=== PATIENT | female | born 1970 | race Caucasian/White ===

== ENCOUNTER 2017-11-19 17:32 | Day surgery (SDC) | payer SELFPAY ==
[~2017-11-19] VITALS: Ht 157.5 cm; Wt 73.6 kg
[~2017-11-19 17:32] MED LIST changes: -ADAPALENE45 G2 TP; -ADVIL,NUPRIN,M200 MG PO; -BUPROPION HCL75 MG PO; -CLONAZEPAM1 MG PO; -ESCITALOPRAM OX20 MG PO; -FLUTICASONE PRO16 GM BOTH NARES; -PEPTO BISMOL240 ML PO; -SPIRIVA RESPIMAT4 G1 IH; -VITAMIN D31000 UNI2 PO
[2017-11-19 18:46] LABS: HEMOGLOBIN 14.7 G/DL (11.9-15.5); MCH 31.1 PG (29.0-34.0); MCHC 34.2 G/DL (30.0-36.0); MCV 90.9 FL (83-99); PLATELET COUNT 203 K/uL (156-360); RBC DIS.WIDTH-CV 13.7 % (11.8-14.6); RBC DIS.WIDTH-SD 46.1 % (39-53); RED BLOOD COUNT 4.73 M/uL (3.80-5.20); WHITE BLOOD COUNT 10.4 K/uL (4.1-10.2)
[2017-11-19] MEDS ORDERED: VITAMIN D31000 UNI2 PO (19:45)
[2017-11-19] MEDS ORDERED: ADVIL,NUPRIN,M200 MG PO (19:46)
[2017-11-19] MEDS ORDERED: PEPTO BISMOL240 ML PO (19:47)
[2017-11-19] MEDS ORDERED: CLONAZEPAM1 MG PO (19:48)
[2017-11-19] MEDS ORDERED: FLUTICASONE PRO16 GM BOTH NARES (19:48)
[2017-11-19] MEDS ORDERED: BUPROPION HCL75 MG PO (19:49)
[2017-11-19] MEDS ORDERED: ESCITALOPRAM OX20 MG PO (19:49)
[2017-11-19] MEDS ORDERED: ADAPALENE45 G2 TP (19:50)
[2017-11-19] MEDS ORDERED: SPIRIVA RESPIMAT4 G1 IH (19:51)
[2017-11-19 20:35] LABS: CHLORIDE 105 MEQ/L (99-109); POTASSIUM 3.6 MEQ/L (3.7-5.4); SODIUM 138 MEQ/L (136-147)
[2017-11-19 20:40] LABS: CREATININE 0.6 MG/DL (0.6-1.3); GFR ESTIMATE (CALCULATED) > 59 mL/min/; GLUCOSE 92 mg/dL (70-99); UREA NITROGEN (BUN) 7 mg/dL (9-23)
[2017-11-19 23:57] VITALS: BP 112/56
[2017-11-20 08:12] VITALS: BP 121/68
[2017-11-20 08:59] LABS: BASOPHIL (%) 0.4 % (0-1); EOSINOPHIL (%) 1.4 % (0-5); EOSINOPHIL COUNT 0.1 K/uL (0-0.3); HEMATOCRIT 39.2 % (36.0-46.0); IMMATURE GRANULOCYTE (%) 0.1 % (0.0-0.7); LYMPHOCYTE (%) 15.9 % (15-42); LYMPHOCYTE COUNT 1.4 K/uL (1.0-2.8); MCHC 33.2 G/DL (30.0-36.0); MCV 93.6 FL (83-99); MONOCYTE (%) 5.5 % (3-12); MONOCYTE COUNT 0.5 K/uL (0-0.8); NEUTROPHIL (%) 76.7 % (45-76); NEUTROPHIL COUNT 6.5 K/uL (1.8-6.4); PLATELET COUNT 232 K/uL (156-360); RBC DIS.WIDTH-CV 13.8 % (11.8-14.6); RBC DIS.WIDTH-SD 46.9 % (39-53); RED BLOOD COUNT 4.19 M/uL (3.80-5.20); WHITE BLOOD COUNT 8.5 K/uL (4.1-10.2)
[2017-11-20 09:25] LABS: CHLORIDE 103 MEQ/L (99-109); CREATININE 0.8 MG/DL (0.6-1.3); GFR ESTIMATE (CALCULATED) > 59 mL/min/; GLUCOSE 112 mg/dL (70-99); POTASSIUM 3.6 MEQ/L (3.7-5.4); SODIUM 141 MEQ/L (136-147); UREA NITROGEN (BUN) 4 mg/dL (9-23)
== END 2017-11-20 15:09 | disposition home or self-care (01) ==
LOC: EME 17:32 → SDC 21:08 → 2SOUTH 22:35 → 5EAST 22:35 → 2SOUTH 22:35 → ENRESERV 22:44 → 5EAST 23:47
PROVIDERS: Emergency Medicine; Physician Assistant
PROC: 0DTJ4ZZ Resection of Appendix, Percutaneous Endoscopic Approach (ICD-10-PCS; principal; 2017-11-19)
DX: K35.3 Acute appendicitis with localized peritonitis (principal); Z86.718 Personal history of other venous thrombosis and embolism
CPT/HCPCS: 80048; 84702; 85025; 85027; 88304; 93005; 99281; 99285; G0378; J1170; J2250; J3010; J7030; J7120; S0020; S0074

== ENCOUNTER → 2017-11-19 | Outpatient (CLI) | payer SELFPAY ==
[~2017-11-19] MED LIST: ADAPALENE45 G2 TP; ADVIL,NUPRIN,M200 MG PO; BUPROPION HCL75 MG PO; CALCIUM 500 MG1 EACH PO; CLONAZEPAM1 MG PO; ESCITALOPRAM OX20 MG PO; FLONASE16 G1 BOTH NARES; FLUTICASONE PRO16 GM BOTH NARES; KLONOPIN0.5 M1 PO; LEXAPRO20 MG PO; PEPTO BISMOL240 ML PO; SPIRIVA RESPIMAT4 G1 IH; VITAMIN B125000 MCG PO; VITAMIN D31000 UNI2 PO; WELLBUTRIN75 MG PO; WOMEN'S DAILY1 EACH PO
== END | disposition home or self-care (01) ==
LOC: RAD 14:24
DX: K35.80 Unspecified acute appendicitis (principal); Q63.1 Lobulated, fused and horseshoe kidney; K44.9 Diaphragmatic hernia without obstruction or gangrene
CPT/HCPCS: 74176; J0330